=== PATIENT | female | born 1985 | race Caucasian/White ===

== ENCOUNTER 2023-12-31 23:27 | Emergency (ER) | payer MEDICAID ==
[~2023-12-31] VITALS: Ht 157.5 cm; Wt 56.7 kg
[2024-01-01 00:04] VITALS: BP_SYST 110; PULSE 81; RESP 18; TEMP 97.2; O2SAT 98
[2024-01-01] MEDS ORDERED: FLUORESCEIN SODIUM 1 MG OPHTHALMIC STRIP OP ONE (01:12)
[2024-01-01] MEDS ORDERED: BALANCED SALT IRRIG SOLN 15 ML IO ONE (01:12)
[2024-01-01] MEDS ORDERED: TETRACAINE HCL/PF 0.5% OPHTHALMIC DROPS 4 ML OP ONE (01:12)
[2024-01-01 01:15] VITALS: O2SAT 98
[2024-01-01 01:20] VITALS: BP_SYST 134; PULSE 89; RESP 18; TEMP 98.6
[2024-01-01] MEDS ORDERED: POLY10DR18 LEFT EYE (01:22)
[2024-01-01] MEDS: FLUORESCEIN SODIUM 1 MG OPHTHALMIC STRIP OP ONE (01:29)
[2024-01-01] MEDS: TETRACAINE HCL/PF 0.5% OPHTHALMIC DROPS 4 ML OP ONE (01:29)
== END 2024-01-01 01:18 | disposition home or self-care (01) ==
LOC: SED 23:27
DX: S05.02XA Injury of conjunctiva and corneal abrasion without foreign body, left eye, initial encounter (principal); H11.32 Conjunctival hemorrhage, left eye; Z88.0 Allergy status to penicillin; X58.XXXA Exposure to other specified factors, initial encounter; Y93.89 Activity, other specified; Y92.89 Other specified places as the place of occurrence of the external cause; Y99.8 Other external cause status
CPT/HCPCS: 99283